=== PATIENT | female | born 1990 | race Caucasian/White ===

== ENCOUNTER → 2017-03-30 | Outpatient (CLI) | payer MEDICAID ==
[~2017-03-30] MED LIST: CEPHALEXIN500 M1 PO; FLEXERIL 1010 MG/TAB PO; LIDODERM 5% PATC1 EA TP; MOTRIN 600600 MG/TAB PO; PERCOCET 325 MG1 TA2 PO; PRENATAL1 TA7
== END ==
LOC: MHCPAIN 11:41
DX: M47.817 Spondylosis without myelopathy or radiculopathy, lumbosacral region (principal); M46.97 Unspecified inflammatory spondylopathy, lumbosacral region; M43.17 Spondylolisthesis, lumbosacral region
CPT/HCPCS: J1040; Q9967

== ENCOUNTER → 2017-04-17 | Outpatient (CLI) | payer MEDICAID | LOC: MHCPAIN 13:33 | DX: G89.29 Other chronic pain (principal); M47.27 Other spondylosis with radiculopathy, lumbosacral region; F17.210 Nicotine dependence, cigarettes, uncomplicated | CPT/HCPCS: G0463 ==

== ENCOUNTER → 2017-07-19 | Outpatient (CLI) | payer MEDICAID | LOC: MHCPAIN 13:55 | DX: G89.29 Other chronic pain (principal); M47.817 Spondylosis without myelopathy or radiculopathy, lumbosacral region; M54.16 Radiculopathy, lumbar region | CPT/HCPCS: G0463 ==

== ENCOUNTER → 2017-08-10 | Outpatient (CLI) | payer MEDICAID | LOC: MHCPAIN 12:53 | DX: Z53.8 Procedure and treatment not carried out for other reasons (principal) ==

== ENCOUNTER → 2017-08-17 | Outpatient (CLI) | payer MEDICAID | LOC: MHCPAIN 14:37 | DX: M47.817 Spondylosis without myelopathy or radiculopathy, lumbosacral region (principal); M43.16 Spondylolisthesis, lumbar region ==

== ENCOUNTER → 2017-08-22 | Outpatient (CLI) | payer MEDICAID | LOC: MHCPAIN 15:24 | DX: G89.29 Other chronic pain (principal); M47.27 Other spondylosis with radiculopathy, lumbosacral region; F17.210 Nicotine dependence, cigarettes, uncomplicated | CPT/HCPCS: G0463 ==

== ENCOUNTER → 2017-09-21 | Outpatient (CLI) | payer MEDICAID | LOC: MHCPAIN 14:32 | DX: M47.817 Spondylosis without myelopathy or radiculopathy, lumbosacral region (principal); M43.16 Spondylolisthesis, lumbar region | CPT/HCPCS: J1040; J1100; J2250; J3010 ==

== ENCOUNTER → 2017-11-21 | Outpatient (CLI) | payer MEDICAID | LOC: MHCPAIN 10:51 | DX: G89.29 Other chronic pain (principal); M47.817 Spondylosis without myelopathy or radiculopathy, lumbosacral region; M54.16 Radiculopathy, lumbar region; M53.3 Sacrococcygeal disorders, not elsewhere classified | CPT/HCPCS: G0463 ==

== ENCOUNTER → 2017-11-30 | Outpatient (CLI) | payer MEDICAID | LOC: MHCPAIN 13:09 | DX: M47.817 Spondylosis without myelopathy or radiculopathy, lumbosacral region (principal); M43.06 Spondylolysis, lumbar region | CPT/HCPCS: J1100; J2250; J3010 ==

== ENCOUNTER → 2018-01-31 | Outpatient (CLI) | payer MEDICAID | LOC: MHCPAIN 13:54 | DX: G89.29 Other chronic pain (principal); M47.817 Spondylosis without myelopathy or radiculopathy, lumbosacral region; M54.16 Radiculopathy, lumbar region; M53.3 Sacrococcygeal disorders, not elsewhere classified | CPT/HCPCS: G0463 ==

== ENCOUNTER → 2018-05-29 | Outpatient (CLI) | payer MEDICAID | LOC: MHCPAIN 13:24 | DX: G89.29 Other chronic pain (principal); M47.817 Spondylosis without myelopathy or radiculopathy, lumbosacral region; M54.16 Radiculopathy, lumbar region; M53.3 Sacrococcygeal disorders, not elsewhere classified | CPT/HCPCS: G0463 ==

== ENCOUNTER → 2019-06-05 | Outpatient (CLI) | payer MEDICAID | LOC: MHCPAIN 13:25 | DX: M47.817 Spondylosis without myelopathy or radiculopathy, lumbosacral region (principal); M54.16 Radiculopathy, lumbar region | CPT/HCPCS: G0463 ==

== ENCOUNTER → 2019-12-04 | Outpatient (CLI) | payer MEDICAID | LOC: MHCPAIN 13:32 | DX: M47.817 Spondylosis without myelopathy or radiculopathy, lumbosacral region (principal); M54.5 Low back pain; M53.3 Sacrococcygeal disorders, not elsewhere classified; M54.16 Radiculopathy, lumbar region | CPT/HCPCS: G0463 ==

== ENCOUNTER 2019-12-07 15:05 | Emergency (ER) | payer MEDICAID ==
[~2019-12-07] VITALS: Ht 175.3 cm; Wt 75.5 kg
[2019-12-07 15:16] VITALS: TEMP 98.2
[2019-12-07] MEDS ORDERED: LUNESTA 1MG TAB1 MG PO (15:22)
[2019-12-07] MEDS ORDERED: AMBIEN 10MG10 MG PO (15:22)
[2019-12-07] MEDS ORDERED: LYRICA 100MG C100 M1 PO (15:22)
[2019-12-07] MEDS ORDERED: ZOLOFT 100MG100 MG PO (15:23)
[2019-12-07] MEDS ORDERED: DESYREL 100MG100 MG PO (15:23)
[2019-12-07] MEDS ORDERED: CATAPRES 0.1MG0.1 MG PO (15:23)
[2019-12-07] MEDS ORDERED: LIORESAL 1010 MG/TAB PO (15:24)
[2019-12-07] MEDS ORDERED: IBU800 M1 PO (15:24)
[2019-12-07] MEDS ORDERED: VOLTAREN 75 DR75 MG PO (15:25)
[2019-12-07] MEDS ORDERED: LOPRESSOR 225 MG/TAB PO (15:25)
[2019-12-07] MEDS ORDERED: NORVASC 10MG10 MG PO (15:26)
[2019-12-07] MEDS ORDERED: CYMBALTA 60MG60 MG PO (15:26)
[2019-12-07 16:30] LABS: COLLECTION METHOD CLEAN CATCH
[2019-12-07 16:33] LABS: BASO % 0.1 % (0.0-2.0); EOS # 0.1 (0.0-0.7); EOS % 1.4 % (0-4.0); GRAN # 5.5 (1.4-6.5); HEMATOCRIT 37.4 % (37.0-47.0); HEMOGLOBIN 12.5 g/dl (12.5-16.0); LYMPH # 2.2 (1.2-3.4); MEAN CELL VOLUME 80 fl (80.0-100.0); MEAN CORPUSCULAR HEMOGLOBIN 27 pg (27.0-31.0); MEAN CORPUSCULAR HGB CONC 33 g/dl (33.0-37.0); MEAN PLATELET VOLUME 9.2 fl (7.4-10.4); MONO # 0.5 (0.1-0.6); MONO % 6.1 % (1.7-9.3); PLATELET COUNT 355 K/mm3 (130-400); RED BLOOD COUNT 4.65 M/mm3 (4.10-5.30); REDCELL DISTRIBUTION WIDTH-CV 13.2 % (11.5-14.5)
[2019-12-07 16:41] LABS: ANION GAP 7 mmol/L (7-16); BLOOD UREA NITROGEN 13 mg/dL (7-17); CALCIUM 9.3 mg/dL (8.4-10.2); CARBON DIOXIDE 26 mmol/L (22-30); CHLORIDE 104 mmol/L (98-107); CREATININE, serum 0.66 (0.52-1.25); GLUCOSE 93 mg/dL (74-106); POTASSIUM 4.2 mmol/L (3.4-5.0); SODIUM 137 mmol/L (137-145)
[2019-12-07 16:49] LABS: AMORPHOUS CRYSTAL Present /uL; MUCOUS Present /lpf; PH 7 (5-8); URINE APPEARANCE Cloudy; URINE BACTERIA Rare /hpf; URINE BILIRUBIN Negative (NEGATIVE); URINE BLOOD Negative (NEGATIVE); URINE COLOR Yellow; URINE GLUCOSE Negative (NEGATIVE); URINE KETONE Negative (NEGATIVE); URINE LEUKOCYTE ESTERASE 1+ (NEGATIVE); URINE NITRATE Negative (NEGATIVE); URINE PROTEIN(semi-quant) Negative (NEGATIVE); URINE RBC 0-2 /hpf; URINE UROBILINOGEN Negative (NEGATIVE)
[2019-12-07 16:54] LABS: C-REACTIVE PROTEIN < 0.5 mg/dL (0.0-0.9)
[2019-12-07 17:34] VITALS: BP 111/58; PULSE 80
== END 2019-12-07 17:34 | disposition home or self-care (01) ==
LOC: COL.ER 15:05
PROVIDERS: Emergency Medicine
DX: R23.2 Flushing (principal); Z90.710 Acquired absence of both cervix and uterus; Z90.721 Acquired absence of ovaries, unilateral; Z98.84 Bariatric surgery status

== ENCOUNTER → 2020-01-16 | Outpatient (CLI) | payer MEDICAID ==
[~2020-01-16] MED LIST changes: +AMBIEN 10MG10 MG PO; +CATAPRES 0.1MG0.1 MG PO; +CYMBALTA 60MG60 MG PO; +DESYREL 100MG100 MG PO; +IBU800 M1 PO; +LIORESAL 1010 MG/TAB PO; +LOPRESSOR 225 MG/TAB PO; +LUNESTA 1MG TAB1 MG PO; +LYRICA 100MG C100 M1 PO; +NORVASC 10MG10 MG PO; +VOLTAREN 75 DR75 MG PO; +ZOLOFT 100MG100 MG PO
== END ==
LOC: MHCPAIN 12:58
DX: M47.817 Spondylosis without myelopathy or radiculopathy, lumbosacral region (principal); M53.3 Sacrococcygeal disorders, not elsewhere classified; M54.5 Low back pain; G89.29 Other chronic pain
CPT/HCPCS: G0260; G0463; J1040; J2250; J2310; J3010; Q9967

== ENCOUNTER → 2020-03-17 | Outpatient (CLI) | payer MEDICAID | LOC: COL.RAD 13:48 | DX: M43.17 Spondylolisthesis, lumbosacral region (principal) ==

== ENCOUNTER → 2020-03-17 | Outpatient (CLI) | payer MEDICAID | LOC: MHCPAIN 12:59 | DX: M47.817 Spondylosis without myelopathy or radiculopathy, lumbosacral region (principal); M54.5 Low back pain; M53.3 Sacrococcygeal disorders, not elsewhere classified; G89.29 Other chronic pain | CPT/HCPCS: G0463 ==